=== PATIENT | female | born 2000 | race Caucasian/White ===

== ENCOUNTER 2018-06-25 15:40 | Emergency (ER) | payer OTHER ==
[~2018-06-25] VITALS: Ht 162.6 cm; Wt 72.3 kg
[2018-06-25 16:00] VITALS: BP 135/75
[2018-06-25] MEDS ORDERED: METOCLOPRAMIDE 10 MG/2 ML INJ VIAL IVP ONE (16:30)
[2018-06-25 16:51] LABS: BASOPHILS # (AUTO) 0.1 K/uL (0.00-0.22); BASOPHILS % (AUTO) 0.7 % (0.0-2.0); EOSINOPHILS % (AUTO) 0.2 % (0.0-4.0); HEMATOCRIT 41.9 % (36-48); HEMOGLOBIN 13.5 g/dL (12.0-16.0); LYMPHOCYTES # (AUTO) 2.8 K/uL (2.5-16.5); LYMPHOCYTES % (AUTO) 24.8 % (20.5-51.1); MEAN CORPUSCULAR HEMOGLOBIN 27 pg (27-31); MEAN CORPUSCULAR HGB CONC 32 g/dL (33-37); MEAN CORPUSCULAR VOLUME 85.3 fL (80-94); MONOCYTES # (AUTO) 0.8 K/uL (0.8-1.0); MONOCYTES % (AUTO) 6.8 % (1.7-9.3); NEUTROPHILS # (AUTO) 7.6 K/uL (1.8-7.7); NEUTROPHILS % (AUTO) 67.5 % (42.2-75.2); PLATELET COUNT (AUTO) 341 K/uL (140-450); RED BLOOD CELL COUNT(AUTO) 4.91 MIL/uL (4.20-5.40); RED CELL DISTRIBUTION WIDTH 13.9 % (11.6-13.7); WHITE BLOOD COUNT (AUTO) 11.3 K/uL (4.5-11.0)
[2018-06-25 17:00] LABS: APPEARANCE,URINE CLEAR (CLEAR); BILIRUBIN,URINE 1+ (NEGATIVE); BLOOD, URINE NEGATIVE (NEGATIVE); COLOR,URINE YELLOW (YELLOW); LEUKOCYTE ESTERASE ,URINE NEGATIVE (NEGATIVE); NITRITE, URINE NEGATIVE (NEGATIVE); PH,URINE 6.5 (5.0-9.0); UGLUCOSE NEGATIVE (NEGATIVE)
[2018-06-25 17:09] LABS: ALBUMIN 4.2 g/dL (3.4-5.0); ANION GAP 12.4 (8-16); CARBON DIOXIDE 27.9 mmol/L (21-32); CREATININE 0.8 mg/dL (0.6-1.3); POTASSIUM 3.3 mmol/L (3.5-5.1); TOTAL BILIRUBIN 0.5 mg/dL (0.0-1.0)
[2018-06-25] MEDS ORDERED: NACL 0.9% 1,000 ML IV ONE (17:20)
[2018-06-25] MEDS ORDERED: POTASSIUM CHLORIDE 10 MEQ TABER PO ONE (17:25)
[2018-06-25 17:50] VITALS: BP 133/74
== END 2018-06-25 17:50 | disposition home or self-care (01) ==
LOC: MED 15:40
DX: K52.9 Noninfective gastroenteritis and colitis, unspecified (principal); E87.6 Hypokalemia
CPT/HCPCS: 36415; 80053; 81003; 81025; 83690; 85025; 96374; 99283; J2765; J7030

== ENCOUNTER 2019-03-29 09:28 | Emergency (ER) | payer OTHER ==
[~2019-03-29] VITALS: Ht 152.4 cm; Wt 72.6 kg
[2019-03-29 09:30] VITALS: BP 100/70
--- NOTE | 2019-03-29 09:40 | NUR ---
PT AMB TO BED 9.
--- NOTE | 2019-03-29 09:50 | NUR ---
18/F BIBS, PT CAME IN COMPLAINING OF ABDOMINAL PAIN +DIARRHEA, +VOMING/ NAUSEA. SHE HAS ABDOMINAL PAIN SINCE 03/20/19, DIFFUSED ABDOMINAL PAIN, 6/10 INTENSIFIES WHEN MOVING, BSX4 HYPERACTIVE, NO TENDERNESS ON PALPATION. LAST BM 0430ON 03/28/19 REPORTED DIARRHEA AND BROWN/YELOW WATERY STOOL. NO FLATUS PRESENT, PT STATES SHE IS "TOO TIRED TO EAT" HAS NOT HAD ANY FOOD OR LIQUIDS SINCE 03/27/19. TEST NEGATIVE. VSS PMHX: DENIES RX: DENIES
[2019-03-29] MEDS ORDERED: ONDANSETRON 4 MG ODT PO ONE (10:20)
--- NOTE | 2019-03-29 10:41 | NUR ---
PT REPORTS SHE IS LESS NAUSEOUS, PAIN 4/10
[2019-03-29 11:15] VITALS: BP 105/72
--- NOTE | 2019-03-29 11:15 | NUR ---
Patient discharged with v/s stable. Written and verbal after care instructions given and explained. Patient alert, oriented and verbalized understanding of instructions. Ambulatory with steady gait. All questions addressed prior to discharge. ID band removed. Patient advised to follow up with PMD. Rx of ZOFRAN, LOMITIL, AND PEPCID given. Patient educated on indication of medication including possible reaction and side effects. Opportunity to ask questions provided and answered.
== END 2019-03-29 11:15 | disposition home or self-care (01) ==
LOC: MED 09:28
DX: R11.2 Nausea with vomiting, unspecified (principal); R19.7 Diarrhea, unspecified; F12.90 Cannabis use, unspecified, uncomplicated; Z88.6 Allergy status to analgesic agent
CPT/HCPCS: 99283; Q0162; 81002; 81025

== ENCOUNTER 2020-07-27 22:15 | Emergency (ER) | payer OTHER ==
[~2020-07-27] VITALS: Ht 152.4 cm; Wt 81.6 kg
[2020-07-27 22:20] VITALS: BP 120/74
--- NOTE | 2020-07-27 22:20 | NUR ---
TO BED AMBULATORY
--- NOTE | 2020-07-27 22:43 | NUR ---
19 Y/O FEMALE C/O ABD PAIN. PT STATES INTERMITTENT 9/10 CRAMPING PAIN. +N/V. PT STATES SHE FOUND OUT SHE IS SINCE . RX: TYLENOL WITH NO RELIEF MEDHX: DENIES ALLERGIES: IBUPROFEN
--- NOTE | 2020-07-27 22:50 | NUR ---
Trisha ayon in [facility] - 07/27/20 at 2257 by [email or web address] PT PLACED ON 2040 HOLD FOR DTS BY TIMOTHY SOOD.
--- NOTE | 2020-07-27 22:50 | NUR ---
LAB AT BEDSIDE
--- NOTE | 2020-07-27 22:53 | NUR ---
ULTRASOUND AT BEDSIDE
[2020-07-27 23:00] LABS: BASOPHILS # (AUTO) 0.1 K/uL (0.00-0.22); EOSINOPHILS # (AUTO) 0.1 K/uL (0-0.4); EOSINOPHILS % (AUTO) 0.5 % (0.0-4.0); HEMATOCRIT 37.1 % (36-48); HEMOGLOBIN 12.4 g/dL (12.0-16.0); LYMPHOCYTES # (AUTO) 3.5 K/uL (2.5-16.5); LYMPHOCYTES % (AUTO) 28.2 % (20.5-51.1); MEAN CORPUSCULAR HEMOGLOBIN 29 pg (27-31); MEAN CORPUSCULAR HGB CONC 33 g/dL (33-37); MEAN CORPUSCULAR VOLUME 87.8 fL (80-94); MONOCYTES # (AUTO) 0.8 K/uL (0.8-1.0); MONOCYTES % (AUTO) 6.6 % (1.7-9.3); NEUTROPHILS # (AUTO) 7.8 K/uL (1.8-7.7); NEUTROPHILS % (AUTO) 63.7 % (42.2-75.2); PLATELET COUNT (AUTO) 343 K/uL (140-450); RED BLOOD CELL COUNT(AUTO) 4.23 MIL/uL (4.20-5.40); RED CELL DISTRIBUTION WIDTH 13.6 % (11.6-13.7); WHITE BLOOD COUNT (AUTO) 12.3 K/uL (4.8-10.8)
[2020-07-27 23:00] LABS: APPEARANCE,URINE CLEAR (CLEAR); BILIRUBIN,URINE NEGATIVE (NEGATIVE); BLOOD, URINE NEGATIVE (NEGATIVE); COLOR,URINE YELLOW (YELLOW); LEUKOCYTE ESTERASE ,URINE 1+ (NEGATIVE); NITRITE, URINE NEGATIVE (NEGATIVE); PH,URINE 5.5 (5.0-9.0); UGLUCOSE NEGATIVE (NEGATIVE)
--- NOTE | 2020-07-27 23:00 | NUR ---
PT AMBULATED TO RESTROOM, STEADY GAIT
[2020-07-27 23:09] LABS: RBC,URINE 0-5 /HPF (0-5); WBC,URINE 0-5 /HPF (0-5)
--- NOTE | 2020-07-27 23:35 | NUR ---
Dr. Vasquez examining patient.
[2020-07-28] MEDS ORDERED: NITR100C7 PO (00:47)
[2020-07-28 01:09] VITALS: BP 120/74
--- NOTE | 2020-07-28 01:09 | NUR ---
Patient discharged with v/s stable. Written and verbal after care instructions given and explained. Patient alert, oriented and verbalized understanding of instructions. Ambulatory with steady gait. All questions addressed prior to discharge. ID band removed. Patient advised to follow up with PMD. Rx of NITROFURANTOIN given. Patient educated on indication of medication including possible reaction and side effects. Opportunity to ask questions provided and answered.
== END 2020-07-28 01:09 | disposition home or self-care (01) ==
LOC: MED 22:15
DX: O23.41 Unspecified infection of urinary tract in pregnancy, first trimester (principal); Z88.6 Allergy status to analgesic agent; Z79.899 Other long term (current) drug therapy
CPT/HCPCS: 36415; 76817; 81001; 81025; 84702; 85025; 86900; 86901; 87086; 99284